=== PATIENT | female | born 1955 | race Two or more races ===

== ENCOUNTER 2024-03-02 11:42 | Outpatient (CLI) | payer BC | END 2024-03-02 23:59 | disposition home or self-care (01) | LOC: RAD 11:42 | PROVIDERS: ATTEND Physician Assistant | DX: M18.12 Unilateral primary osteoarthritis of first carpometacarpal joint, left hand (principal); M25.842 Other specified joint disorders, left hand; M25.832 Other specified joint disorders, left wrist; M25.532 Pain in left wrist; M79.642 Pain in left hand | CPT/HCPCS: 73110; 73130 ==